=== PATIENT | male | born 1945 | race Caucasian/White ===

== ENCOUNTER → 2016-05-25 | Outpatient (CLI) | payer MEDICARE ==
[2014-12-05 10:42] VITALS: BP 101/49
[~2016-05-25] MED LIST: AMIO200T PO; ASPI-482 PO; CARV3.12 PO; CETI10TA16 PO; CITA20TA5 PO; FLUT1DIS3 INH; GABA-586 PO; HUM100VI5 SQ; LOSA1TAB17 PO; METF500T4 PO; OMEP20TA63 PO; PROP150T PO; WARF5TAB PO; WARF5TAB7 PO
[2016-05-25] MEDS: ZOLPIDEM 5 MG TABLET. PO ONE (23:45)
--- NOTE | 2016-05-27 17:18 | CONS ---
DATE OF CONSULTATION: 05/25/2016 DATE OF STUDY: 05/25/2016 ATTENDING PHYSICIAN: Dr. Jose Rutherford. HISTORY OF PRESENT ILLNESS: The patient is a 70-year-old who weighs 217 pounds with a BMI of 35. The patient's [place] score was 12. Sleep study was performed at [facility] to rule out [place]. This was a split night study. During the night study, the patient spent 457 minutes in bed and slept for 431 minutes with a sleep efficiency of 94%. Sleep latency was 11 minutes with an absent REM sleep. Overall, sleep architecture showed increased stage I and stage II sleep, normal slow wave and absent REM sleep. During the diagnostic portion of the study, the patient slept for 222 minutes. During this time, there were 4 obstructive apneas, 1 mixed and no central apneas, but there were 93 hypopneas. The patient's apnea-hypopnea index was 27 per hour. Supine or REM sleep was not seen during the diagnostic portion. Review of nocturnal oximetry study revealed a mean oxygen saturation of 92% with the lowest of 79%. 86% of time oxygen saturation remained between 80-89%. EKG monitoring revealed normal sinus rhythm. No sustained arrhythmias were observed. Average heart rate was 82 beats per minute. PLMs were not seen. The patient met the criteria for CPAP initiation. It was started at 5 cm water and titrated up to 15 cm water, however, respiratory events persisted. As a result, the patient was switched to BiPAP starting at a pressure of 20/15 and titrated up 30/21. At the final pressure, the patient had supine sleep, but no REM sleep was observed. AHI was still 37 per hour. Optimum BiPAP pressure was not achieved. I would recommend patient should be placed on an auto BiPAP at a maximum inspiratory pressure of 30 with a minimum expiratory pressure of 20 with a pressure support of 4. Download information should be obtained in 30 days. Patient used a medium sized full face mask. IMPRESSION: 1. Moderate sleep apnea-hypopnea syndrome with an AHI of 27 per hour. Absence of supine and REM sleep during the diagnostic portion can underestimate the severity of sleep apnea. 2. Nocturnal hypoxia, not completely resolved with BiPAP. At the final pressure, oxygen saturation remained in the high 80s with the lowest of 83%. 3. No clinically significant PLMS. RECOMMENDATIONS: 1. Optimum BiPAP pressure was not achieved. I would recommend patient to be placed on auto BiPAP with a maximum IPAP pressure of 30 and a minimum IPAP of 20 with a pressure support 4. Download information should be obtained in the next 30 days and make any necessary adjustments. 2. Weight loss is strongly emphasized. This may improve patient's BiPAP pressure requirements. 3. Nocturnal oximetry study while on current BiPAP setting to assess the need for supplemental oxygen. 4. The patient used a medium size full face mask. KAMRAN HERNANDEZ MD DR: ROSA/alia JOB#: [id number] / [id number] SHO
== END | disposition home or self-care (01) ==
LOC: SLPLAB 18:11
PROVIDERS: ATTEND Family Medicine
DX: R53.82 Chronic fatigue, unspecified (principal); G47.33 Obstructive sleep apnea (adult) (pediatric)
CPT/HCPCS: 95810